=== PATIENT | male | born 1985 | race Caucasian/White ===

== ENCOUNTER 2020-11-15 11:27 | Emergency (ER) | payer SELFPAY ==
[~2020-11-15] VITALS: Ht 157.5 cm; Wt 50.0 kg
[2020-11-15 11:30] VITALS: BP 100/61
[2020-11-15] MEDS: LIDOCAINE 2%/EPI 1:100,000 20 ML VIAL. INJ ONE (12:08)
[2020-11-15] MEDS: DIPH,PERTUSS(ACELL),TET VAC/PF 0.5 ML SYRINGE. VAX IM ONE (12:18)
--- NOTE | 2020-11-15 13:16 | PHYS DOC ---
Past Medical History Past Medical History: No Pertinent History Past Surgical History: No Surgical History Smoking Status: Current Every Day Smoker Alcohol Use: None Drug Use: None General Adult EDM: Chief Complaint: LACERATION/AVULSION HPI: HPI: Patient is a 34 year old male patient presented to the ED today with right forearm laceration. Patient states he was doing some remodeling work removing his floor in the bathroom he fell and cut himself on the ground. He is not sure if he was cut on a nail or anything else on the ground. Denies any loss of consciousness, denies hitting his head on the ground. Review of Systems: Review of Systems: Constitutional: Denies fever or chills. [] Musculoskeletal: Denies back pain or joint pain. [] Integument: Reports right forearm laceration Neurologic: Denies headache, focal weakness or sensory changes. [] Psychiatric: Denies depression or anxiety. [] Heart Score: C/O Chest Pain: N/A Risk Factors: Risk Factors: DM, Current or recent (<one month) smoker, HTN, HLP, family history of CAD, obesity. Risk Scores: Score 0 - 3: 2.5% MACE over next 6 weeks - Discharge Home Score 4 - 6: 20.3% MACE over next 6 weeks - Admit for Clinical Observation Score 7 - 10: 72.7% MACE over next 6 weeks - Early Invasive Strategies Current Medications: Current Medications Medications (Trade) Dose Ordered Sig/Dasia Start Time Stop Time Status Last Admin Dose Admin Diphtheria/ Tetanus/Acell Pertussis (ADACEL TDap SYRINGE) 0.5 ml ONCE ONCE 11/15/20 12:15 11/15/20 12:16 DC 11/15/20 12:18 0.5 ML Lidocaine/ Epinephrine (LIDOCAINE 2%-EPI 1:100,000 multi-dose) 20 ml 1X ONCE 11/15/20 12:00 11/15/20 12:01 DC 11/15/20 12:08 20 ML Allergies: Allergies: Allergies Coded Allergies Type Severity Reaction Last Updated Verified No Known Drug Allergies 02/24/14 No Physical Exam: PE: Constitutional: Well developed, well nourished, no acute distress, non-toxic appearance. [] Skin: Mid right forearm with a laceration approximately 6 cm long, there is no obvious tendon involvement. Full range of motion to the right forearm. Full range of motion to the right fingers. Adequate radial, medial, ulnar sensation to the right fingers. +2 right radial pulse. Cap refill less than 2 seconds to the right fingers. There is a couple superficial abrasions also noted on the right forearm. Back: No tenderness, no CVA tenderness. [] Extremities: No tenderness, no cyanosis, no clubbing, ROM intact, no edema. [] Neurologic: Alert and oriented X 3, normal motor function, normal sensory function, no focal deficits noted. [] Psychologic: Affect normal, judgement normal, mood normal. [] Current Patient Data: Vital Signs: Vital Signs Date Time Temp Pulse Resp B/P (MAP) Pulse Ox O2 Delivery O2 Flow Rate FiO2 11/15/20 11:30 97.8 62 14 100/61 (74) 99 Room Air 97.8 EKG: EKG: [] Radiology/Procedures: Radiology/Procedures: Laceration/Wound Repair Laceration/Wound Repair : [] Wound Location: Right forearm Wound's Depth, Shape: Vertical Wound Length (cm): Approximately 6 cm Wound Explored: clean Irrigated w/ Saline (ccs): 100 Betadine Prep?: Betadine Anesthesia: 1% of lidocaine with epinephrine Volume Anesthetic (ccs): 10 mm Wound Repaired With: Ethilon Suture Size/Type: 4.0/interrupted sutures Number of Sutures: 11 sutures Progress : Wound was covered with nonstick dressing Course & Med Decision Making: Course & Med Decision Making Pertinent Labs and Imaging studies reviewed. (See chart for details) Patient has right forearm laceration that was closed by me. Wound care instructions and return precautions provided to patient. Tetanus updated. Sil Disclaimer: Sil Disclaimer: This electronic medical record was generated, in whole or in part, using a voice recognition dictation system. Departure Departure Impression: Primary Impression: Fall Qualified Codes: W19.XXXA - Unspecified fall, initial encounter Additional Impression: Laceration of right forearm Qualified Codes: S51.811A - Laceration without foreign body of right forearm, initial encounter Disposition: 01 DC HOME SELF CARE/HOMELESS Condition: STABLE Referrals: NO PCP (PCP) follow up with the ED or your doctor in 7 days for suture removal Patient Instructions: Laceration Care, Adult Additional Instructions: You have right forearm laceration that was closed with stitches. You can shower and wash your hands including your forearm. Remove the dressing in 24 hours. Apply Neosporin to the laceration site twice a day for 7 days. Monitor the area for any signs of infection including but not limited to increased redness, warmth, yellow drainage from the areas and return to the ED if they occur. Please have the stitches removed in 7 days. ROBBIE GONZÁLES APRN Nov 15, 2020 13:16
== END 2020-11-15 13:30 | disposition home or self-care (01) ==
LOC: ER 11:27
DX: S51.811A Laceration without foreign body of right forearm, initial encounter (principal); F17.200 Nicotine dependence, unspecified, uncomplicated; W18.09XA Striking against other object with subsequent fall, initial encounter; Y93.89 Activity, other specified; Y92.091 Bathroom in other non-institutional residence as the place of occurrence of the external cause; Y99.8 Other external cause status
CPT/HCPCS: 12002; 90471; 90715; 99283; J3490